=== PATIENT | female | born 1985 | race Caucasian/White ===

== ENCOUNTER → 2016-03-09 | Outpatient (CLI) | payer OTHER ==
--- NOTE | 2016-03-09 21:30 | REP ---
Clinical: Twin gestation for growth evaluation. Comparison: 02/06/2016. Findings: Advanced diamniotic dichorionic twin gestations noted. Placenta for twin A noted anteriorly and twin B posteriorly, both grade 1 and without evidence for placenta previa or abruption. motion is appreciated and concordant growth is noted. Gestational age by LMP 33 weeks 1 day with estimated date of delivery 04/26/2016. Twin A: Breech presentation along the maternal midline. motion noted. Amniotic fluid volume is normal and the deepest pocket measures 3.2 cm. Gestational age by current measurements 33 weeks 4 days. heart rate equals 144 beats per minute. Estimated weight 2295 grams (60th percentile). Twin B: Transverse lie with head towards the maternal right side. motion noted. Amniotic fluid volume is normal and the deepest pocket measures 3.5 cm. Gestational age by current measurements 33 weeks 1 day. heart rate equals 168 beats per minute. Estimated weight 2112 grams (44th percentile). Impression: Advanced diamniotic dichorionic twin gestation demonstrating appropriate and concordant growth. Signed by Jose Antonio Carranza MD 03/09/2016 09:22 P
== END ==
LOC: M RAD 14:46
PROVIDERS: ATTEND Obstetrics & Gynecology
DX: O30.043 Twin pregnancy, dichorionic/diamniotic, third trimester (principal)

== ENCOUNTER → 2016-03-23 | Outpatient (REF) | payer OTHER | LOC: M LAB REF 17:10 | PROVIDERS: ATTEND Obstetrics & Gynecology | DX: Z34.83 Encounter for supervision of other normal pregnancy, third trimester (principal) ==

== ENCOUNTER → 2016-04-05 | Outpatient (CLI) | payer OTHER ==
[~2016-04-05] MED LIST: PREN29CH PO
--- NOTE | 2016-04-05 16:12 | REP ---
Obstetric sonography: Multiple gestation. History: growth study. Twins. Comparison study March 09, 2016. Findings: A diamniotic dichorionic twin gestation is noted. The placenta is anterior for twin A and posterior for twin B, grade 3 without evidence of previa or abruption. There is concordant and appropriate interval growth of both twins. Twin A is in a breech lie along the maternal midline. Twin B is transverse with head to the maternal right side. Amniotic fluid is subjectively normal around both twins. The deepest pocket of amniotic fluid around twin A measures 3.6 and that surrounding twin B measures 3.8 cm. No extrauterine abnormalities observed. Biometry chart twin A: BPD 9.2 cm =37 weeks 3 days HC 33.0 cm = 37 weeks 4 days AC 34.4 cm = 38 weeks 2 days FL 7.1 cm = 36 weeks 1 day HL 6.4 cm = 37 weeks 2 days HC/AC ratio normal 0.96. Cephalic index normal 0.79. Estimated weight 3255 grams 7 pounds 2 ounces, 64th percentile. PARISH 3.6. S/D ratio in the umbilical cord artery by Doppler is 2.10 normal. Biometry chart twin B: BPD 8.9 cm = 35 weeks 6 days HC 33.0 cm = 37 weeks 4 days AC 33.4 cm = 37 weeks 2 days FL 7.2 cm = 36 weeks 6 days HL 6.4 cm = 37 weeks 0 days HC/AC ratio normal 0.99. Cephalic index normal 0.75. Estimated weight 3106 grams, 6 pounds 13 ounces, 55th percentile. PARISH normal 3.8 cm. S/D ratio in the umbilical cord artery by Doppler normal 1.83. Impression: Viable twin intrauterine gestation with appropriate and concordant interval growth. 37 weeks 4 days by prior sonography. PAULINE by prior sonography April 22, 2016. Signed by Kwame Rivera MD 04/05/2016 04:48 P
== END ==
LOC: M RAD 10:30
PROVIDERS: ATTEND Obstetrics & Gynecology
DX: O30.043 Twin pregnancy, dichorionic/diamniotic, third trimester (principal); Z3A.37 37 weeks gestation of pregnancy

== ENCOUNTER 2016-04-13 06:58 | Inpatient (IN) | payer OTHER ==
[~2016-04-13] VITALS: Ht 157.5 cm; Wt 80.0 kg
[2016-04-13] MEDS ORDERED: IRON65TA PO (07:30)
[2016-04-13] MEDS ORDERED: LACTATED RINGER'S 1000 ML IV STA (07:42)
[2016-04-13] MEDS ORDERED: LR 1,000 ML IV SCH ×3 (07:42→13:00)
[2016-04-13] MEDS ORDERED: BICITRA 30ML SOLN UDC PO ONE (07:45)
[2016-04-13 07:58] LABS: MEAN CORPUSCULAR HEMOGLOBIN 31.1 pg (27.0-33.0); MEAN CORPUSCULAR HGB CONC 35.6 g/dl (32.0-36.5); MEAN CORPUSCULAR VOLUME 87.2 fl (80.0-96.0); RED CELL DISTRIBUTION WIDTH 12.9 % (11.5-14.5); WHITE BLOOD COUNT 9.4 K/mm3 (4.0-10.0)
[2016-04-13] MEDS ORDERED: ONDANSETRON 4MG/2ML VIAL (J2405) As Ordered ONE (09:52)
[2016-04-13] MEDS ORDERED: KETOROLAC 60 MG/2 ML VIAL (J1885) As Ordered ONE (09:52)
[2016-04-13] MEDS ORDERED: MORPHINE PRES-FREE INJ 10 MG/10 ML VIAL (J2274) As Ordered ONE (09:52)
[2016-04-13] MEDS ORDERED: OXYTOCIN INJ 10 UNITS/ML VIAL (J2590) As Ordered ONE ×4 (09:52→12:08)
[2016-04-13] MEDS ORDERED: METOCLOPRAMIDE INJ 10MG/2ML VIAL (J2765) IV PRN ×2 (10:54→13:00)
[2016-04-13] MEDS ORDERED: NALBUPHINE HCL 10 MG/ML AMP (J2300) IV PRN (10:54)
[2016-04-13] MEDS ORDERED: NALOXONE INJ 0.4 MG/1 ML VIAL (J2310) IV PRN ×2 (10:54)
[2016-04-13] MEDS ORDERED: ONDANSETRON 4MG/2ML VIAL (J2405) IV PRN ×3 (10:54→13:00)
[2016-04-13] MEDS ORDERED: ePHEDrine SULFATE 25 MG/5 ML(5MG/ML) SYRINGE As Ordered ONE (11:41)
[2016-04-13] MEDS ORDERED: PHENYLephrine HCL 500 MCG/5 ML (100MCG/ML) SYRINGE (J2370) As Ordered ONE (11:41)
[2016-04-13] MEDS ORDERED: OXYTOCIN DRIP 30 UNITS in APPROPRIATE DILUENT 1 EA IV ONE (11:45)
[2016-04-13] MEDS ORDERED: oxyCODONE 5MG TAB PO PRN ×3 (11:45→13:15)
[2016-04-13] MEDS ORDERED: MEASLES,MUMPS,RUBELLA VACCINE INJ (MMR-II) (90707) SC SCH (11:45)
[2016-04-13] MEDS ORDERED: RHOGAM 300 MCG (1500 IU) INJ (J2790) IM SCH (11:45)
[2016-04-13] MEDS ORDERED: DOCUSATE SODIUM 100 MG CAP PO PRN (11:45)
[2016-04-13] MEDS ORDERED: MOM 30ML SUSPENSION UDC PO PRN (11:45)
[2016-04-13] MEDS ORDERED: miSOPROStol 200 MCG TAB (S0191) PR ONE (12:30)
[2016-04-13] MEDS ORDERED: METHYLERGONOVINE MALEATE 0.2 MG/ML VIAL (J2210) IM ONE (13:00)
[2016-04-13] MEDS ORDERED: fentaNYL 100 MCG/2 ML INJECTION (J3010) IV PRN (13:00)
[2016-04-13] MEDS: LR 1,000 ML IV SCH ×2 (14:00→19:44)
[2016-04-13 14:20] VITALS: BP 140/77
[2016-04-13 14:59] VITALS: BP 131/71
[2016-04-13] MEDS: METHYLERGONOVINE MALEATE 0.2 MG TAB PO SCH ×3 (15:07→23:26)
[2016-04-13] MEDS: KETOROLAC 30 MG/ML VIAL (J1885) IV SCH ×2 (15:08→21:29)
[2016-04-13 15:55] VITALS: BP 134/91
[2016-04-13 18:27] VITALS: BP 125/69
[2016-04-13] MEDS ORDERED: LACTATED RINGER'S 1000 ML IV ONE (18:30)
[2016-04-13] MEDS ORDERED: MORPHINE 2 MG/ML 1ML SYRINGE IV PRN (20:45)
[2016-04-13] MEDS ORDERED: PROMETHAZINE INJ 25 MG/ML VIAL (J2550) IV PRN (20:45)
[2016-04-13 22:36] VITALS: BP 138/90
[2016-04-14 02:18] VITALS: BP 122/60
[2016-04-14] MEDS: METHYLERGONOVINE MALEATE 0.2 MG TAB PO SCH ×2 (03:15→06:23)
[2016-04-14] MEDS: KETOROLAC 30 MG/ML VIAL (J1885) IV SCH ×2 (03:15→10:11)
[2016-04-14] MEDS: LR 1,000 ML IV SCH ×2 (03:44→11:51)
[2016-04-14 06:36] VITALS: BP 110/61
[2016-04-14 07:08] LABS: MEAN CORPUSCULAR HEMOGLOBIN 30.5 pg (27.0-33.0); MEAN CORPUSCULAR HGB CONC 34.8 g/dl (32.0-36.5); MEAN CORPUSCULAR VOLUME 87.5 fl (80.0-96.0); RED CELL DISTRIBUTION WIDTH 12.6 % (11.5-14.5); WHITE BLOOD COUNT 8.5 K/mm3 (4.0-10.0)
[2016-04-14] MEDS: PRENATAL VITAMIN TAB PO SCH (09:08)
[2016-04-14 10:16] VITALS: BP 122/77
[2016-04-14 14:04] VITALS: BP 120/74
[2016-04-14] MEDS: oxyCODONE 5MG TAB PO PRN ×2 (14:26→19:52)
[2016-04-14 18:00] VITALS: BP 110/66
[2016-04-14] MEDS: IBUPROFEN 800 MG TAB PO SCH (18:03)
[2016-04-14 22:00] VITALS: BP 112/60
[2016-04-15] MEDS: oxyCODONE 5MG TAB PO PRN ×2 (00:14→06:29)
[2016-04-15] MEDS: IBUPROFEN 800 MG TAB PO SCH ×2 (02:34→10:24)
[2016-04-15 06:11] VITALS: BP 128/76
[2016-04-15] MEDS ORDERED: OXYC1SOL PO (07:39)
[2016-04-15] MEDS: PRENATAL VITAMIN TAB PO SCH (08:11)
[2016-04-15] MEDS ORDERED: IBUP-1114 PO (08:21)
[2016-04-15] MEDS ORDERED: IBUP600T26 PO (09:18)
[2016-04-15] MEDS ORDERED: PHEN1SUP6 PO (09:19)
[2016-04-15] MEDS ORDERED: PROM50TA2 PO (09:26)
[2016-04-15] MEDS ORDERED: OXYC15TA76 PO (09:39)
== END 2016-04-15 11:35 | disposition home or self-care (01) | DRG 540 ==
LOC: M LDI 06:58 → M OBS 14:13
PROVIDERS: ADMIT Obstetrics & Gynecology; ATTEND Obstetrics & Gynecology
PROC: 10D00Z1 Extraction of Products of Conception, Low, Open Approach (ICD-10-PCS; principal; 2016-04-13 09:30)
DX: O64.1XX1 Obstructed labor due to breech presentation, fetus 1 (principal); O30.043 Twin pregnancy, dichorionic/diamniotic, third trimester; Z37.2 Twins, both liveborn; O72.1 Other immediate postpartum hemorrhage; Z3A.38 38 weeks gestation of pregnancy; O64.8XX2 Obstructed labor due to other malposition and malpresentation, fetus 2

== ENCOUNTER → 2017-06-21 | Outpatient (REF) | payer OTHER | LOC: M LAB REF 17:54 | DX: Z12.4 Encounter for screening for malignant neoplasm of cervix (principal) ==

== ENCOUNTER → 2018-02-23 | Outpatient (REF) | payer OTHER ==
[~2018-02-23] MED LIST changes: +IBUP-1022 PO; +IBUP-1114 PO; +IRON65TA PO; +OXYC15TA76 PO; +OXYC1SOL3 PO; +PHEN1SUP6 PO; +PREN1CHW6 PO; -PREN29CH PO; +PROM50TA4 PO
== END ==
LOC: M LAB REF 16:51
PROVIDERS: ATTEND Physician Assistant
DX: J02.9 Acute pharyngitis, unspecified (principal)

== ENCOUNTER → 2018-07-28 | Outpatient (REF) | payer OTHER ==
[2018-08-02 14:11] LABS: HPV HYBRID CAPTURE II Negative (Negative)
== END ==
LOC: M LAB REF 17:05
PROVIDERS: ATTEND Obstetrics & Gynecology
DX: Z12.4 Encounter for screening for malignant neoplasm of cervix (principal)